=== PATIENT | male | born 1990 | race American Indian/Alaskan Native ===

== ENCOUNTER 2021-10-25 23:12 | Emergency (ER) | payer OTHER ==
[~2021-10-25 23:12] MED LIST: BUPRENORPHIN-N1 EAC1 SL; Bactrim Ds Tab1 EACH PO; CEPH500 PO; CLON.1 PO; CYCL10 PO; Cleocin HCl150 MG PO; HYDACE5 PO; HYDACE5325 PO; KETO10 PO; LIND1TL TOP; METPRE4DP PO; NAPR500 PO; Norco 5-325 Ta1 EACH PO; ONDA8 PO; OXYACE5T PO; PRED10 PO; RXCEPH500 PO; RXCYCL10 PO; RXSULTRIDS PO; SULTRIDS PO
== END 2021-10-25 23:49 | disposition left against medical advice (07) ==
LOC: ER 23:12
DX: Z53.21 Procedure and treatment not carried out due to patient leaving prior to being seen by health care provider (principal)

== ENCOUNTER 2021-10-28 12:27 | Emergency (ER) | payer OTHER | END 2021-10-28 12:44 | disposition left against medical advice (07) | LOC: ER 12:27 | DX: Z53.21 Procedure and treatment not carried out due to patient leaving prior to being seen by health care provider (principal) ==

== ENCOUNTER 2022-01-31 02:49 | Emergency (ER) | payer OTHER ==
[~2022-01-31] VITALS: Ht 180.3 cm; Wt 70.3 kg
[2022-01-31 03:21] LABS: BASOPHILS ABSOLUTE AUTO 0.04 K/mm3 (0.00-0.23); BASOPHILS PERCENT AUTO 1 % (0-2); EOSINOPHILS ABSOLUTE AUTO 0.09 K/mm3 (0.00-0.68); EOSINOPHILS PERCENT AUTO 1 % (0-6); Hematocrit 43.5 % (37.0-53.0); Hemoglobin 14.3 g/dL (13.5-17.5); IMMATURE GRAN ABSOLUTE AUTO 0.05 K/mm3 (0.00-0.10); IMMATURE GRAN PERCENT AUTO 1 % (0-1); LYMPHOCYTES ABSOLUTE AUTO 1.94 K/mm3 (0.84-5.20); LYMPHOCYTES PERCENT AUTO 26 % (21-46); MONOCYTES ABSOLUTE AUTO 0.53 K/mm3 (0.16-1.47); MONOCYTES PERCENT AUTO 7 % (4-13); Mean Corpuscular HGB 29.8 pg (26.0-34.0); Mean Corpuscular HGB Conc 32.9 g/dL (31.5-36.5); Mean Corpuscular Volume 91 fL (80-100); Mean Platelet Volume 10.3 fL (9.1-12.4); NEUTROPHILS PERCENT AUTO 65 % (41-73); NRBC ABSOLUTE 0.02 K/mm3 (0.00-0.02); NRBC Auto 0.3 /100 WBC (0.0-0.2); Platelet Count 121 K/mm3 (150-400); RDW Standard Deviation 43.6 fL (35.1-46.3); White Blood Cell Count 7.45 K/mm3 (4.00-11.30)
[2022-01-31 03:32] LABS: Alanine Aminotransfer (ALT/SGP 172 U/L (12-78); Albumin, Blood 3.8 g/dL (3.4-5.0); Albumin/Globulin Ratio 1.1 (0.8-1.8); Alk Phos 215 U/L (50-136); Anion Gap 7 mmol/L (6-16); Aspartate Aminotrans (AST/SGOT 100 U/L (12-37); Bilirubin, Total 0.7 mg/dL (0.1-1.0); Blood Urea Nitrogen 13 mg/dL (8-24); Bun/Creatinine Ratio 18.8 (12.0-20.0); CO2, Blood 30 mmol/L (21-32); Calcium, Blood 8.8 mg/dL (8.5-10.1); Chloride, Blood 105 mmol/L (98-108); Creatinine, Blood 0.69 mg/dL (0.60-1.20); Ethanol (Alcohol), Blood, Med <3 mg/dL; Globulin, Blood 3.5 g/dL (2.2-4.0); Glomerular Filtration Rate >60 (60-); Glucose, Blood 122 mg/dL (70-99); Potassium, Blood 3.8 mmol/L (3.5-5.5); Salicylate <1.7 mg/dL (2.8-20.0); Sodium, Blood 142 mmol/L (136-145); Total Protein, Blood 7.3 g/dL (6.4-8.2)
[2022-01-31 03:33] LABS: Acetaminophen, Random <2.0 ug/mL (10.0-30.0)
[2022-01-31] MEDS ORDERED: NARCAN4 M1 (04:15)
== END 2022-01-31 04:23 | disposition home or self-care (01) ==
LOC: ER 02:49
PROVIDERS: Emergency Medicine
DX: T40.601A Poisoning by unspecified narcotics, accidental (unintentional), initial encounter (principal); Z79.899 Other long term (current) drug therapy; F17.200 Nicotine dependence, unspecified, uncomplicated
CPT/HCPCS: 80053; 84484; 85025; 93005; 93010; 99284-25; G0480

== ENCOUNTER 2022-04-11 05:39 | Emergency (ER) | payer SELFPAY ==
[~2022-04-11] VITALS: Ht 182.9 cm; Wt 68.0 kg
[~2022-04-11 05:39] MED LIST changes: +NARCAN4 M1
== END 2022-04-11 12:50 | disposition home or self-care (01) ==
LOC: ER 05:39
DX: F11.13 Opioid abuse with withdrawal (principal)
CPT/HCPCS: A9270